=== PATIENT | female | born 1935 | race Hispanic/Latino ===

== ENCOUNTER 2016-05-28 18:27 | Emergency (ER) | payer MEDICARE, OTHER ==
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
[2016-05-28] MEDS ORDERED: ACETAMINOPHEN 325 MG TABLET PO ONE (19:44)
[2016-05-28] MEDS ORDERED: DIPHTH,PERTUSS(ACELL),TET VAC 0.5 ML VIAL IM ONE ×2 (19:44→19:49)
[2016-05-28] MEDS ORDERED: ACETAMINOPHEN 325 MG TABLET ONE (19:48)
[2016-05-28 20:07] VITALS: BP 160/81
== END 2016-05-28 20:06 | disposition home or self-care (01) ==
LOC: ER 18:27
DX: S16.1XXA Strain of muscle, fascia and tendon at neck level, initial encounter (principal); S80.212A Abrasion, left knee, initial encounter; W10.9XXA Fall (on) (from) unspecified stairs and steps, initial encounter; Y92.009 Unspecified place in unspecified non-institutional (private) residence as the place of occurrence of the external cause; Z85.118 Personal history of other malignant neoplasm of bronchus and lung; E11.9 Type 2 diabetes mellitus without complications; Z79.4 Long term (current) use of insulin; I10 Essential (primary) hypertension; Z90.49 Acquired absence of other specified parts of digestive tract; Z23 Encounter for immunization

== ENCOUNTER 2017-04-20 12:19 | Emergency (ER) | payer MEDICARE, BC ==
[2017-04-20 12:29] VITALS: BP 133/70
--- NOTE | 2017-04-20 14:01 | ERNOTE ---
Lower Extremity HPI - Narrative Date of Service: 04/20/17 - General Lower Extremities Pain: 5th toe: right Time Seen by Provider: 04/20/17 13:32 Source: patient Exam Limitations: no limitations - Immun/Allergies/Home Medications Immunizations: IMMUNIZATION HX History of Influenza Vaccine No Hx Pneumococcal Vaccination No Allergies/Adverse Reactions: Allergies Allergy/AdvReac Type Severity Reaction Status Date / Time Iodinated Contrast- Oral and Allergy Verified 05/28/16 18:32 IV Dye [Iodinated Contrast Media - IV Dye] Home Medications: HOME MEDICATIONS Blood Sugar Diagnostic, Drum [Accu-Chek Compact] 1 each MC BID 01/14/15 [Last Taken Unknown] Glimepiride [Amaryl] 2 mg PO DAILY 01/14/15 [Last Taken Unknown] Insulin Glargine,Hum.rec.anlog [Lantus] 20 units SC HS 01/14/15 [Last Taken Unknown] Losartan Potassium [Cozaar] 50 mg PO BID 01/14/15 [Last Taken Unknown] Omeprazole [Prilosec] 20 mg PO DAILY 01/14/15 [Last Taken Unknown] Simvastatin [Zocor] 20 mg PO HS 01/14/15 [Last Taken Unknown] Carbamide Peroxide [Ear Drops] 15 ml OT BID 05/28/16 [Last Taken Unknown] Cholecalciferol (Vitamin D3) [Vitamin D3] 2,000 unit PO DAILY 05/28/16 [Last Taken Unknown] Vitamin B12 500 mcg PO DAILY 05/28/16 [Last Taken Unknown] metFORMIN HCL [Glumetza] 250 mg PO BIDWM 05/28/16 [Last Taken Unknown] - History of Present Illness Narrative: Pt. comes in with c/o R lateral foot pain after she tripped while running after her grandchildren yesterday. Pt. denies any pain anywhere else. Pt. denies any SOB, CP, NVD, fever, recent illness, or prehospital treatment. Review of Systems - Review of Systems Constitutional: Present: no symptoms reported. Absent: recent illness, fever, chills, weakness, fatigue, malaise EYE: Present: no symptoms reported ENT: Present: no symptoms reported Respiratory: Present: no symptoms reported. Absent: shortness of breath, cough , wheezing Cardiology: Present: no symptoms reported. Absent: chest pain, palpitations, edema Gastrointestinal/Abdominal: Present: no symptoms reported Musculoskeletal: Present: joint pain - R lateral foot and fith toe Skin: Present: no symptoms reported Neurological: Present: no symptoms reported. Absent: headache, dizziness/light- headedness, numbness, tingling All Other Systems: All systems neg except as marked - Patient's Past Medical History Patient History - Medical: Diabetes Type 2 Insulin Dependent Patient History - Cardiac/Respiratory: No pertinent hx Patient History - Cancer: Lung Patient History - Surgical Procedures: Appendectomy, Cholecystectomy Patient History - Other: None - Family History Mother Family History - Medical: Father Family History - Medical: - Social History Living Situations: home Abuse History: No History of abuse Psych History: No pertinent hx Smoking Status: Never smoker Have you smoked in the past 12 months: No Do you dip or chew tobacco: No - Immunizations Hx Pneumococcal Vaccination: No History of Influenza Vaccine: No Physical Exam - Physical Exam General Appearance: Present: wd/wn, alert, no apparent distress Head Exam: Present: normal inspection, no evidence of injury, no tenderness w palpation Eye Exam: Normal inspection: bilateral, PERRL: bilateral, EOMI: bilateral Respiratory: Present: no respiratory distress, normal breath sounds, no accessory muscle use, chest nontender, lungs clear Cardiovascular/Chest: Present: regular rate, rhythm, no murmur, normal peripheral pulses Back Exam: Present: normal inspection, normal range of motion, no CVA tenderness , no vertebral tenderness Extremity Exam: Present: normal range of motion, bony tenderness - distal metatarsal prox phalanx, joint swelling - R fifth toe Neurological Exam: Present: alert, oriented, normal mood/affect, no motor/ sensory deficits Skin Exam: Present: normal color, warm/dry. Absent: pallor, skin rash ED Progress - Date and Time Seen: Date and Time: 04/20/17 14:[address] Huff and he recommends a post op shoe and follow up with him next week. - Vital Signs Patient's Vital Signs:: I have reviewed the patient's vital signs. Vital Signs: Vital Signs 04/20/17 12:24 Temperature 36.7 C Pulse Rate 92 Respiratory 14 Rate Blood Pressure 133/70 O2 Sat by Pulse 98 Oximetry - X-Ray X-Ray #1 X-Ray: foot Interpretation: Reviewed by me X-ray Comments: fifth metatarsal neck angulated fracture - Progress/Reassessment Chief Complaint: Lower Extremity Pain/ Injury Departure Clinical Impression: Metatarsal fracture Qualifiers: Encounter type: initial encounter Metatarsal bone: fifth Fracture type: closed Fracture alignment: displaced Laterality: right Qualified Code(s): S92.351A - Displaced fracture of fifth metatarsal bone, right foot, initial encounter for closed fracture - Departure Disposition: Home self-care Condition: Good Instructions: Metatarsal Fracture Additional Instructions: Please call Dr Huff's office when you get home and make appointment for next week. Please take Tylenol 1000 mg every 6 hours for pain. Referrals: Keegan Huff MD [Staff Physician] -
== END 2017-04-20 14:59 | disposition home or self-care (01) ==
LOC: ER 12:19
DX: S92.351A Displaced fracture of fifth metatarsal bone, right foot, initial encounter for closed fracture (principal); Z85.118 Personal history of other malignant neoplasm of bronchus and lung; W18.40XA Slipping, tripping and stumbling without falling, unspecified, initial encounter; Y93.02 Activity, running